=== PATIENT | male | born 1980 | race Two or more races ===

== ENCOUNTER 2017-06-06 11:38 | Emergency (ER) | payer OTHER ==
[~2017-06-06] VITALS: Ht 160 cm; Wt 79.4 kg
[2017-06-06 11:54] VITALS: BP 124/87
--- NOTE | 2017-06-06 12:35 | Emergency Room Report ---
History of Present Illness General Chief Complaint: Head Injury Source: Patient Present Illness HPI The patient is a 36-year-old male presenting for head pain after a box fell on his head at work 2 days prior. He states that boxes approximately 10 pounds and fell onto the left side of his head from a shelf. Pain has continued and is now a 6/10 throbbing sensation to the left side of the head. Does not radiate. Worse with touch. He denies falling or loss of consciousness.He does admit to dizziness and feeling of nausea. He denies vomiting. He denies any other symptoms including fever, chills, blurred vision, neck pain , difficulty sleeping Allergies: Coded Allergies: No Known Allergies (Unverified , 06/06/17) Patient History Past Medical History: see triage record Pertinent Family History: none Reviewed Nursing Documentation: PMH: Agreed, PSxH: Agreed Nursing Documentation-PMH Past Medical History: No Stated History Review of Systems All Other Systems: negative except mentioned in HPI Physical Exam Vital Signs Date Time Temp Pulse Resp B/P (MAP) Pulse Ox O2 Delivery O2 Flow Rate FiO2 06/06/17 11:42 98.4 106 16 124/87 98 Room Air Sp02 EP Interpretation: reviewed, normal General Appearance: no apparent distress, alert, GCS 15, non-toxic Head: normocephalic, atraumatic, other - TTP over the L temporal region Eyes: bilateral eye normal inspection, bilateral eye PERRL ENT: hearing grossly normal, normal pharynx, no angioedema, normal voice Neck: full range of motion, supple, no bony tend, supple/symm/no masses Respiratory: chest non-tender, lungs clear, normal breath sounds, speaking full sentences Musculoskeletal: back normal, gait/station normal, normal range of motion Neurologic: alert, oriented x3, responsive, motor strength/tone normal, sensory intact, speech normal Psychiatric: judgement/insight normal, memory normal, mood/affect normal, no suicidal/homicidal ideation Skin: normal color, no rash, warm/dry, well hydrated Medical Decision Making PA Attestation Dr. Ramon is my supervising physician. Patient management was discussed with my supervising physician Diagnostic Impression: Primary Impression: Concussion Qualified Codes: S06.0X0A - Concussion without loss of consciousness, initial encounter ER Course The patient is a 36-year-old male presenting for head pain after a box fell on his head Differential diagnoses considered but not limited to: Concussion, contusion, intracranial hemorrhage, fracture, among others Physical exam: No apparent distress A&Ox3 PERRL Head is normocephalic, atraumatic. There is tenderness to palpation over the left temporal region. No ecchymosis. No edema. No crepitus or depressions. Neck: Soft, nontender. Full active range of motion The patient is given Motrin and Zofran in the emergency department and will be discharged home with the same. He is diagnosed with concussion clinically due to his stated symptoms. He will need to follow up with his primary doctor. ER precautions are given Last Vital Signs Date Time Temp Pulse Resp B/P (MAP) Pulse Ox O2 Delivery O2 Flow Rate FiO2 06/06/17 11:54 98.4 68 16 124/87 98 Room Air Status: improved Disposition: HOME, SELF-CARE Condition: Improved Scripts Ondansetron* (ZOFRAN*) 4 Mg Tablet 4 MG ORAL Q6H Y for Nausea & Vomiting, #15 TAB Prov: VELASQUEZ BHATTI 06/06/17 Ibuprofen* (MOTRIN*) 600 Mg Tablet 600 MG ORAL Q8H Y for For Pain, #30 TAB 0 Refills Prov: VELASQUEZ BHATTI 06/06/17 Referrals: NOT CHOSEN MEGHAN/,REFERRING (PCP) VELASQUEZ BHATTI Jun 06, 2017 12:35
[2017-06-06] MEDS ORDERED: IBUPROFEN600 MG ORAL (12:37)
[2017-06-06] MEDS ORDERED: ZOFRAN4 M3 ORAL (12:37)
[2017-06-06 13:42] VITALS: BP 124/87
== END 2017-06-06 13:44 | disposition home or self-care (01) ==
LOC: EDBD 11:38 → EMR 12:29
DX: S06.0X0A Concussion without loss of consciousness, initial encounter (principal); W20.8XXA Other cause of strike by thrown, projected or falling object, initial encounter; Y93.9 Activity, unspecified; Y99.0 Civilian activity done for income or pay
CPT/HCPCS: 99284

== ENCOUNTER 2017-06-13 13:53 | Emergency (ER) | payer OTHER ==
[~2017-06-13] VITALS: Ht 160 cm; Wt 77.1 kg
[~2017-06-13 13:53] MED LIST: IBUPROFEN600 MG ORAL; ZOFRAN4 M3 ORAL
[2017-06-13 14:30] VITALS: BP 124/84
--- NOTE | 2017-06-13 15:43 | Diagnostic Imaging Report ---
Indication: PAIN headache since last week status post container falling on head at work Technique: Continuous helical CT scanning of the head was performed without intravenous contrast material. Axial and coronal 5 mm sections were generated. Radiation dose was minimized using automated exposure control Dose: Total Dose Length Product - DLP [address] Dose Index - CTDIvol(s) 70.38 mGy. Comparison: None Findings: The ventricular system is normal in size and configuration. There is no shift of midline structures. No abnormal extra-axial fluid collections are noted. There is no evidence of intracerebral bleeding. No other abnormal high or low density areas are noted within the brain. Intact calvarium. Visualized orbits and sinuses are unremarkable. Impression: Normal CT scan of the head without contrast material. The CT scanner at [facility] is accredited by the [employer] and the scans are performed using protocols designed to limit radiation exposure to as low as reasonably achievable to attain images of sufficient resolution adequate for diagnostic evaluation.
[2017-06-13] MEDS ORDERED: IBUPROFEN600 MG ORAL (16:04)
[2017-06-13] MEDS ORDERED: TRAMADOL HCL50 MG ORAL (16:04)
[2017-06-13 16:10] VITALS: BP 124/84
--- NOTE | 2017-06-13 23:40 | Emergency Room Report ---
History of Present Illness General Chief Complaint: Headache Source: Patient Present Illness HPI The patient is a 36-year-old male presenting for continued head pain. He was seen in this emergency department approximately one week prior and diagnosed with concussion after a container fell on his head at work. He states the pain is 8/10 dull ache and is worse with touch. He has been taking Motrin at home which has not been helping. Primarily to the left side of the head.He denies any other symptoms at this time including nausea, vomiting, dizziness, blurred vision, neck pain Allergies: Coded Allergies: No Known Allergies (Unverified , 06/06/17) Patient History Past Medical History: see triage record Pertinent Family History: none Reviewed Nursing Documentation: PMH: Agreed, PSxH: Agreed Nursing Documentation-PMH Past Medical History: No Stated History Review of Systems All Other Systems: negative except mentioned in HPI Physical Exam Vital Signs Date Time Temp Pulse Resp B/P (MAP) Pulse Ox O2 Delivery O2 Flow Rate FiO2 06/13/17 14:10 98.1 91 16 124/84 98 Room Air Sp02 EP Interpretation: reviewed, normal General Appearance: no apparent distress, alert, GCS 15, non-toxic Head: normocephalic, atraumatic Eyes: bilateral eye normal inspection, bilateral eye PERRL ENT: hearing grossly normal, normal pharynx, no angioedema, normal voice Neck: full range of motion, no bony tend, supple/symm/no masses Respiratory: chest non-tender, lungs clear, normal breath sounds, speaking full sentences Neurologic: alert, oriented x3, responsive, motor strength/tone normal, sensory intact, speech normal Psychiatric: judgement/insight normal, memory normal, mood/affect normal, no suicidal/homicidal ideation Skin: normal color, no rash, warm/dry, well hydrated Medical Decision Making PA Attestation Dr. Hernandez is my supervising physician. Patient management was discussed with my supervising physician Diagnostic Impression: Primary Impression: Concussion Qualified Codes: S06.0X0D - Concussion without loss of consciousness, subsequent encounter ER Course Patient is a 36-year-old male presenting for continued symptoms after concussion Differential diagnoses considered but not limited to: Concussion, contusion, intracranial hemorrhage, fracture, among others Physical exam is unremarkable. Head is normocephalic atraumatic. No raccoon eyes or Bullard signs The patient did not initially have any imaging done. Due to continued symptoms , CT scan of head was done. Unremarkable He will followup with his primary doctor and is given ER precautions CT/MRI/US Diagnostic Results CT/MRI/US Diagnostic Results : Imaging Test Ordered: CT head Impression Unremarkable Last Vital Signs Date Time Temp Pulse Resp B/P (MAP) Pulse Ox O2 Delivery O2 Flow Rate FiO2 06/13/17 16:10 98.1 72 16 124/84 98 Room Air Status: improved Disposition: HOME, SELF-CARE Condition: Improved Scripts Ibuprofen* (MOTRIN*) 600 Mg Tablet 600 MG ORAL Q8H Y for For Pain, #30 TAB 0 Refills Prov: [email or web address] [email or web address] 06/13/17 Tramadol Hcl* (ULTRAM*) 50 Mg Tablet 50 MG ORAL Q6H Y for For Pain, #10 TAB 0 Refills Prov: VELASQUEZ BHATTI.A. 06/13/17 Referrals: NOT CHOSEN [facility]/MD,REFERRING (PCP) Patient Instructions: Head Injury, Adult, Concussion, Adult Additional Instructions: I discussed my findings with the patient. All questions and concerns have been answered. Treatment and medication compliance have been addressed. Return to ED if symptoms worsen, new symptoms arise, or if needed for any reason. Patient verbalized understanding of discharge instructions. Please follow up with workers compensation VELASQUEZ BHATTI Jun 13, 2017 23:40
== END 2017-06-13 16:35 | disposition home or self-care (01) ==
LOC: EMR 15:30
DX: S06.0X0D Concussion without loss of consciousness, subsequent encounter (principal); W20.8XXD Other cause of strike by thrown, projected or falling object, subsequent encounter
CPT/HCPCS: 70450; 99283